=== PATIENT | female | born 1940 ===

== ENCOUNTER 2023-09-17 06:00 | Outpatient (RCR) | payer MEDICARE, SELFPAY | END 2023-10-02 23:59 | disposition home or self-care (01) | LOC: MPS 06:00 | PROVIDERS: Visit Provider Physical Medicine & Rehabilitation | DX: R26.81 Unsteadiness on feet (principal); I63.9 Cerebral infarction, unspecified | CPT/HCPCS: 92610; 97110; 97116; 97162; 97530 ==

== ENCOUNTER 2023-10-03 06:00 | Outpatient (RCR) | payer MEDICARE, SELFPAY | END 2023-11-02 23:59 | disposition home or self-care (01) | LOC: MPS 06:00 | PROVIDERS: Visit Provider Physical Medicine & Rehabilitation | DX: R26.81 Unsteadiness on feet (principal) | CPT/HCPCS: 92526; 97110; 97112; 97116; 97530 ==

== ENCOUNTER 2023-11-03 06:00 | Outpatient (RCR) | payer MEDICARE, SELFPAY | END 2023-11-27 23:59 | disposition home or self-care (01) | LOC: MPS 06:00 | PROVIDERS: Visit Provider Physical Medicine & Rehabilitation | DX: R26.81 Unsteadiness on feet (principal) | CPT/HCPCS: 97110; 97530 ==